=== PATIENT | female | born 1995 | race Caucasian/White ===

== ENCOUNTER 2018-05-02 20:18 | Emergency (ER) | payer OTHER, SELFPAY ==
[2018-05-02 20:48] LABS: Bilirubin Negative (Negative); Blood, Urine Trace (Negative); Clarity CLOUDY (Clear); Glucose, Urine (Dipstick) Negative (Negative); Leukocyte Large (Negative); Nitrite Negative (Negative); Pregnancy Test - Urine (BHCG) Negative (Negative); Pregu Control Background? CLEAR/WHITE (CLR/WHITE); Pregu Control Bar Appear? YES (CONTROL BAR); Protein, Urine (Dipstick) Negative (Neg-Trace); Specific Gravity, Urine 1.012 (1.002-1.036); pH, Urine 6.5 (5.0-9.0)
[2018-05-02 20:49] LABS: Specific Gravity 1.012 (1.002-1.036)
[2018-05-02 20:51] LABS: Bacteria/HPF 4+ HPF (None Seen); Hyaline Casts/LPF 0-3 HYALINE CAST LPF (0-3 Hyaline); Pathc Cast-AUWi Flag 0.58 (0-2.49); Squamous Epithelial 0-3 HPF (0-3)
[2018-05-02] MEDS ORDERED: cefTRIAXone\\ROCEPHIN 1 GM VIAL ONE (20:59)
[2018-05-02] MEDS ORDERED: Ondansetron PF 4 MG/2 ML Vial ONE (20:59)
[2018-05-02] MEDS ORDERED: Morphine 4 MG/ML VIAL ONE ×2 (20:59→22:41)
[2018-05-02 21:57] LABS: #Basophils 0.1 thou/uL (0.0-0.2); #Eosinphils 0.1 thou/uL (0.0-0.7); #Lymphocytes 1.8 thou/uL (1.20-3.40); #Monocytes 0.9 thou/uL (0.11-0.59); #Neutrophils 11.1 thou/uL (1.40-6.50); %Basophils 0.5 % (0.0-1.0); %Eosinophils 0.8 % (0.0-10.0); %Lymphocytes 12.7 % (21.0-51.0); %Monocytes 6.5 % (0.0-10.0); %Neutrophils 79.5 % (42.0-75.0); Hemoglobin 12.4 g/dL (12.0-16.0); Mean Corpuscular HGB CONC 32.2 g/dL (32.0-36.0); Mean Corpuscular Hemoglobin 30.3 pg (27.0-31.0); Mean Corpuscular Volume 93.9 fL (78.0-98.0); Mean Platelet Volume 8.9 fL (7.4-10.4); Platelet Count 196 thou/uL (130-400); RBC Distribution Width 12.6 % (11.5-14.5); Red Blood Cell (RBC) Count 4.11 mill/uL (4.20-5.40)
--- NOTE | 2018-05-02 21:58 | CT ---
NONCONTRAST CT ABDOMEN AND PELVIS: 05/02/18 HISTORY: Left flank pain, symptoms of urinary tract infection. Dysuria for one week. COMPARISON: None available. FINDINGS: Lack of intravenous contrast limits sensitivity for evaluation of the parenchymal organs. However, th e liver, spleen, pancreas, bilateral adrenal glands, kidneys, and urinary bladder demonstrate a gross ly normal nonenhanced CT appearance. No renal or ureteral calculi are seen bilaterally and there is n o hydronephrosis. A T-shaped intrauterine contraceptive device is noted. There is prominence of the left ovary when com pared to a prior study in 2010. This may be within normal limits for the patient or possibly represen t ovary with hemorrhagic cysts. However, this cannot be further evaluated on this exam. The right adn exal structures have a normal appearance. No free fluid, fluid collection, or lymphadenopathy seen in the abdomen or pelvis. A tiny fat containing umbilical hernia is present. Small amount of retained fecal material is seen in the colon. Loops of small bowel are normal in caliber. IMPRESSION: No renal or ureteral calculi are seen bilaterally, and there is no hydronephrosis. Prominence of the left ovary which may be within normal limits for the patient. However, if the patient is having adnex al pain or pelvic pain, pelvic ultrasound may be helpful for further evaluation. POS: [facility]
[2018-05-02 22:15] LABS: ALT (SGPT) Less than 7 U/L (8-55); AST (SGOT) 9 U/L (5-34); Albumin 3.8 g/dL (3.5-5.0); Alkaline Phosphatase 78 U/L (40-150); Anion Gap 13 mmol/L (10-20); BUN (Urea Nitrogen) 8 mg/dL (7.0-18.7); Bilirubin, Total 0.4 mg/dL (0.2-1.2); Calc. Creatinine Clearance 0 mL/min (70-130); Calcium 8.8 mg/dL (7.8-10.44); Carbon Dioxide 20 mmol/L (22-29); Chloride 108 mmol/L (98-107); Estimated GFR-MDRD Greater than 90; Globulin 2.5 g/dL (2.4-3.5); Glucose 90 mg/dL (70-105); Lipase 7 U/L (8-78); Potassium 3.8 mmol/L (3.5-5.1); Protein, Total 6.3 g/dL (6.0-8.3); Sodium 137 mmol/L (136-145)
== END 2018-05-02 23:26 | disposition home or self-care (01) ==
LOC: ERS 20:18
DX: N12 Tubulo-interstitial nephritis, not specified as acute or chronic (principal); F17.210 Nicotine dependence, cigarettes, uncomplicated
CPT/HCPCS: 36415; 74176; 80053; 81003; 81015; 81025; 83690; 85025; 96365; 96375; 96376; J0696; J2270; J2405

== ENCOUNTER 2018-06-01 10:40 | Emergency (ER) | payer SELFPAY ==
--- NOTE | 2018-06-01 12:05 | RAD ---
CHEST 1 VIEW: Date: 06/01/18 HISTORY: Cough. COMPARISON: Chest radiograph from 2011. FINDINGS: Lungs are clear. No pneumothorax or effusion. Cardiac silhouette and mediastinal contours are within normal limits. IMPRESSION: No acute intrathoracic abnormality. POS: [facility]
[2018-06-01 12:24] LABS: Bilirubin Negative (Negative); Blood, Urine Negative (Negative); Clarity CLOUDY (Clear); Glucose, Urine (Dipstick) Negative (Negative); Leukocyte Trace (Negative); Nitrite Negative (Negative); Protein, Urine (Dipstick) Negative (Neg-Trace); Specific Gravity, Urine 1.019 (1.002-1.036); Urobilinogen 0.2 mg/dL (0.2-1.0)
[2018-06-01 12:32] LABS: Bacteria/HPF Rare-Few HPF (None Seen); Hyaline Casts/LPF 0-3 HYALINE CAST LPF (0-3 Hyaline); Pathc Cast-AUWi Flag 0.43 (0-2.49); RBC/HPF 0-3 HPF (0-3); WBC/HPF 0-3 HPF (0-3)
[2018-06-01 12:43] LABS: Pregnancy Test - Urine (BHCG) Negative (Negative); Pregu Control Background? CLEAR/WHITE (CLR/WHITE); Pregu Control Bar Appear? YES (CONTROL BAR); Specific Gravity 1.019 (1.002-1.036)
[2018-06-01] MEDS ORDERED: Ketorolac Tromethamine 30 MG/ML VIAL ONE (13:00)
== END 2018-06-01 13:33 | disposition home or self-care (01) ==
LOC: ERS 10:40
DX: B34.9 Viral infection, unspecified (principal); F17.210 Nicotine dependence, cigarettes, uncomplicated; F41.9 Anxiety disorder, unspecified; F32.9 Major depressive disorder, single episode, unspecified; J45.909 Unspecified asthma, uncomplicated
CPT/HCPCS: 71045; 81003; 81015; 81025; 87804; 96360; 96361; 96374; J1885

== ENCOUNTER 2018-06-07 09:27 | Emergency (ER) | payer SELFPAY ==
[2018-06-07 10:33] LABS: Bilirubin Small (Negative); Blood, Urine Negative (Negative); Clarity CLOUDY (Clear); Glucose, Urine (Dipstick) Negative (Negative); Leukocyte Trace (Negative); Nitrite Negative (Negative); Protein, Urine (Dipstick) Negative (Neg-Trace); Specific Gravity, Urine 1.034 (1.002-1.036); pH, Urine 5.5 (5.0-9.0)
[2018-06-07 10:35] LABS: Pathc Cast-AUWi Flag 2.32 (0-2.49); WBC/HPF 0-3 HPF (0-3)
[2018-06-07 10:36] LABS: Pregnancy Test - Urine (BHCG) Negative (Negative); Pregu Control Background? CLEAR/WHITE (CLR/WHITE); Pregu Control Bar Appear? YES (CONTROL BAR); Specific Gravity 1.034 (1.002-1.036)
[2018-06-07 10:45] LABS: Bacteria/HPF 1+ HPF (None Seen); Hyaline Casts/LPF 0-3 HYALINE CAST LPF (0-3 Hyaline); RBC/HPF 0-3 HPF (0-3)
[2018-06-07] MEDS ORDERED: Dexamethasone 4 mg/ml Vial ONE (11:16)
[2018-06-07] MEDS ORDERED: Bicillin LA 2.4 MILL.UNITS/4 ML SYRINGE ONE (11:16)
--- NOTE | 2018-06-07 12:14 | RAD ---
TWO VIEWS OF CHEST: DATE: 06/07/2018. COMPARISON: 06/11/2018. HISTORY: Body aches with sore throat and weakness. FINDINGS: No pneumothorax or pleural fluid. No focal consolidation or alveolar edema. Heart and mediastinal c ontours are unremarkable. IMPRESSION: No acute findings. POS: [facility]
== END 2018-06-07 10:42 | disposition home or self-care (01) ==
LOC: ERS 09:27
DX: J02.0 Streptococcal pharyngitis (principal); J45.909 Unspecified asthma, uncomplicated; F41.9 Anxiety disorder, unspecified; F32.9 Major depressive disorder, single episode, unspecified; F17.210 Nicotine dependence, cigarettes, uncomplicated
CPT/HCPCS: 71046; 81003; 81015; 81025; 87430; 87804; 96372; J0561; J1100

== ENCOUNTER 2018-07-20 15:05 | Emergency (ER) | payer SELFPAY ==
[2018-07-20 15:31] LABS: #Eosinphils 0.1 thou/uL (0.0-0.7); #Lymphocytes 2.1 thou/uL (1.20-3.40); #Monocytes 0.7 thou/uL (0.11-0.59); #Neutrophils 11.3 thou/uL (1.40-6.50); %Basophils 0.3 % (0.0-1.0); %Eosinophils 0.5 % (0.0-10.0); %Monocytes 4.8 % (0.0-10.0); %Neutrophils 79.5 % (42.0-75.0); Hemoglobin 13.5 g/dL (12.0-16.0); Mean Corpuscular HGB CONC 32.5 g/dL (32.0-36.0); Mean Corpuscular Volume 92.4 fL (78.0-98.0); Mean Platelet Volume 9.2 fL (7.4-10.4); Platelet Count 196 thou/uL (130-400); RBC Distribution Width 13.6 % (11.5-14.5); Red Blood Cell (RBC) Count 4.51 mill/uL (4.20-5.40); White Blood Cell (WBC) Count 14.3 thou/uL (4.8-10.8)
[2018-07-20 15:41] LABS: BHCG - Serum Negative (NEGATIVE); Pregs Control Background? CLEAR/WHITE (CLR/WHITE); Pregs Control Bar Appear? YES (CONTROL BAR)
== END 2018-07-20 17:26 | disposition left against medical advice (07) ==
LOC: ERS 15:05
DX: Z53.21 Procedure and treatment not carried out due to patient leaving prior to being seen by health care provider (principal)
CPT/HCPCS: 36415; 84703; 85025

== ENCOUNTER 2018-07-20 18:14 | Emergency (ER) | payer SELFPAY ==
[2018-07-20] MEDS ORDERED: Ketorolac Tromethamine 30 MG/ML VIAL ONE (19:47)
== END 2018-07-20 20:05 | disposition home or self-care (01) ==
LOC: ERS 18:14
DX: N93.9 Abnormal uterine and vaginal bleeding, unspecified (principal); J45.909 Unspecified asthma, uncomplicated; F41.9 Anxiety disorder, unspecified; F32.9 Major depressive disorder, single episode, unspecified; F17.210 Nicotine dependence, cigarettes, uncomplicated
CPT/HCPCS: 96372; J1885

== ENCOUNTER 2018-08-08 11:22 | Emergency (ER) | payer SELFPAY | END 2018-08-08 15:08 | disposition home or self-care (01) | LOC: ERS 11:22 | DX: J06.9 Acute upper respiratory infection, unspecified (principal); Z71.6 Tobacco abuse counseling; F41.9 Anxiety disorder, unspecified; F32.9 Major depressive disorder, single episode, unspecified; F17.210 Nicotine dependence, cigarettes, uncomplicated; J45.909 Unspecified asthma, uncomplicated | CPT/HCPCS: 87804; 99406 ==

== ENCOUNTER 2024-11-12 16:10 | Outpatient (CLI) | payer OTHER | END 2024-11-12 16:11 | disposition home or self-care (01) | LOC: SCSRAD 16:10 | PROVIDERS: ATTEND Family Medicine | DX: M25.571 Pain in right ankle and joints of right foot (principal) ==

== ENCOUNTER 2024-11-19 11:44 | Outpatient (CLI) | payer OTHER | END 2024-11-19 11:45 | disposition home or self-care (01) | LOC: SCSRAD 11:44 | PROVIDERS: ATTEND Family Medicine | DX: S67.22XA Crushing injury of left hand, initial encounter (principal) ==

== ENCOUNTER 2025-04-01 13:39 | Outpatient (CLI) | payer OTHER ==
[~2025-04-01 13:39] MED LIST: Iopamidol-370 76% 500 ML MDV (1 ML CHARGE) ONE
== END 2025-04-01 13:40 | disposition home or self-care (01) ==
LOC: CT 13:39
PROVIDERS: ATTEND Nurse Practitioner Family
DX: N13.30 Unspecified hydronephrosis (principal)
CPT/HCPCS: 74178; Q9967